=== PATIENT | female | born 1965 | race Caucasian/White ===

== ENCOUNTER 2019-12-20 20:02 | Emergency (ER) | payer OTHER ==
[~2019-12-20] VITALS: Ht 162.6 cm; Wt 77.3 kg
[2019-12-20 21:10] VITALS: BP 119/83
[2019-12-20] MEDS ORDERED: HYDROCODONE/ACETAMINOPHEN 5-325 MG TABLET PO ONE (21:15)
== END 2019-12-20 22:29 | disposition home or self-care (01) ==
LOC: EMS 20:04
DX: S62.646A Nondisplaced fracture of proximal phalanx of right little finger, initial encounter for closed fracture (principal); W23.0XXA Caught, crushed, jammed, or pinched between moving objects, initial encounter; Y93.89 Activity, other specified; Y92.89 Other specified places as the place of occurrence of the external cause; Y99.8 Other external cause status

== ENCOUNTER 2021-03-30 17:51 | Emergency (ER) | payer OTHER ==
[~2021-03-30] VITALS: Ht 162.6 cm; Wt 77.3 kg
[2021-03-30 17:55] VITALS: BP 125/93
== END 2021-03-30 20:50 | disposition left against medical advice (07) ==
LOC: EMS 17:58
DX: M79.18 Myalgia, other site (principal); Z53.21 Procedure and treatment not carried out due to patient leaving prior to being seen by health care provider

== ENCOUNTER 2023-02-07 11:32 | Emergency (ER) | payer OTHER ==
[~2023-02-07] VITALS: Ht 162.6 cm; Wt 77.3 kg
[2023-02-07 13:52] VITALS: BP 105/68; PULSE 73; RESP 16; TEMP 98.1
== END 2023-02-07 15:01 | disposition home or self-care (01) ==
LOC: EMS 11:33
DX: S63.613A Unspecified sprain of left middle finger, initial encounter (principal); S60.032A Contusion of left middle finger without damage to nail, initial encounter; X58.XXXA Exposure to other specified factors, initial encounter; Y93.89 Activity, other specified; Y92.89 Other specified places as the place of occurrence of the external cause; Y99.8 Other external cause status
CPT/HCPCS: 99283